=== PATIENT | male | born 1985 | race Two or more races ===

== ENCOUNTER 2017-10-14 12:03 | Emergency (ER) | payer SELFPAY ==
--- NOTE | 2017-10-14 13:00 | EDM.PDOC ---
<Monique Galicia - Last Filed: 10/14/17 12:54> ED HPI GENERAL MEDICAL PROBLEM - General Chief Complaint: Abdominal Pain Stated Complaint: UPPER ABDOMINAL PAIN Time Seen by Provider: 10/14/17 12:42 - History of Present Illness INITIAL COMMENTS - FREE TEXT/NARRATIVE: Patient is a 32 year old male here today for abdominal pain. He drank about 10 beers last night and woke up this morning with LUQ abdominal pain. The pain comes and goes and varies between a 3-8/10 intensity without radiation. He has associated nausea and vomiting and is unable to keep food or water down since last night. He denies fever, chills, diarrhea, or hematemesis. He has not taken anything for pain. He drinks about a 12-pack per week and has a history of pancreatitis, with his last attack occurring about a year ago. Epigastric Pain Score (Numeric/FACES): 4 - Related Data Allergies Allergy/AdvReac Type Severity Reaction Status Date / Time No Known Allergies Allergy Verified 10/14/17 12:24 Home Meds: Home Meds . [No Known Home Meds] 10/14/17 [History] Social & Family History - Tobacco Use Smoking Status *Q: Current Every Day Smoker Years of Tobacco use: 10 Packs/Tins Daily: 0.4 Used Tobacco, but Quit: No Second Hand Smoke Exposure: No - Caffeine Use Caffeine Use: Reports: None - Alcohol Use Date of Last Drink: 10/13/17 - Recreational Drug Use Recreational Drug Use: No ED ROS GENERAL - Review of Systems Constitutional: Reports: Decreased Appetite. Denies: Fever, Chills HEENT: Reports: No Symptoms Respiratory: Reports: No Symptoms Cardiovascular: Reports: No Symptoms Endocrine: Reports: No Symptoms GI/Abdominal: Reports: Abdominal Pain, Decreased Appetite, Nausea, Vomiting. Denies: Bloody Stool, Constipation, Diarrhea : Reports: No Symptoms Musculoskeletal: Reports: No Symptoms Skin: Reports: No Symptoms Neurological: Reports: No Symptoms Psychiatric: Reports: No Symptoms Hematologic/Lymphatic: Reports: No Symptoms Immunologic: Reports: No Symptoms ED EXAM, GI/ABD - Physical Exam Exam Limited By: No Limitations General Appearance: Alert, Mild Distress Throat/Mouth: Normal Inspection Respiratory/Chest: No Respiratory Distress, Lungs Clear, Normal Breath Sounds Cardiovascular: Normal Peripheral Pulses GI/Abdominal Exam: Normal Bowel Sounds, Soft, Guarding, Tender Neurological: Alert, Oriented Course - Vital Signs Last Recorded V/S: Last Vital Signs Temp 37.1 C 10/14/17 12:25 Pulse 70 10/14/17 12:25 Resp 18 10/14/17 12:25 BP 149/107 H 10/14/17 12:25 Pulse Ox 98 10/14/17 12:25 - Orders/Labs/Meds Orders: Active Orders 24 hr Category Date Time Status Peripheral IV Care [RC] . DIRECTED Care 10/14/17 13:19 Active Peripheral IV Insertion Adult [OM.PC] Routine Oth 10/14/17 13:18 Ordered Labs: Laboratory Tests 10/14/17 10/14/17 Range/Units 13:30 13:30 WBC 8.07 (4.23-9.07) K/mm3 RBC 5.09 (4.63-6.08) M/mm3 Hgb 15.5 (13.7-17.5) gm/L Hct 44.9 (40.1-51.0) % MCV 88.2 (79.0-92.2) fl MCH 30.5 (25.7-32.2) pg MCHC 34.5 (32.2-35.5) g/dl RDW Std Deviation 45.1 H (35.1-43.9) fL Plt Count 251 (163-337) K/mm3 MPV 11.1 (9.4-12.3) fl Neutrophils % (Manual) 78 H (40-60) % Band Neutrophils % 1 (0-10) % Lymphocytes % (Manual) 20 (20-40) % Atypical Lymphs % 0 % Monocytes % (Manual) 0 L (2-10) % Eosinophils % (Manual) 0 L (0.8-7.0) % Basophils % (Manual) 1 (0.2-1.2) Platelet Estimate Adequate RBC Morph Comment Normal Sodium 138 (136-145) mEq/L Potassium 4.4 (3.5-5.1) mEq/L Chloride 99 (98-107) mEq/L Carbon Dioxide 27 (21-32) mEq/L Anion Gap 16.4 H (5-15) BUN 18 (7-18) mg/dL Creatinine 0.8 (0.7-1.3) mg/dL Est Cr Clr Drug Dosing 122.79 mL/min Estimated GFR (MDRD) > 60 (>60) mL/min BUN/Creatinine Ratio 22.5 H (14-18) Glucose 98 (74-106) mg/dL Calcium 9.5 (8.5-10.1) mg/dL Total Bilirubin 0.4 (0.2-1.0) mg/dL AST 32 (15-37) U/L ALT 50 (16-63) U/L Alkaline Phosphatase 66 (46-116) U/L C-Reactive Protein < 0.2 (<1.0) mg/dL Total Protein 8.3 H (6.4-8.2) g/dl Albumin 4.5 (3.4-5.0) g/dl Globulin 3.8 gm/dL Albumin/Globulin Ratio 1.2 (1-2) Lipase 111 (73-393) U/L Ethyl Alcohol 0.00 (0.00) gm% Meds: Medications Discontinued Medications Generic Name Dose Route Start Last Admin Trade Name Freq PRN Reason Stop Dose Admin Al Hydroxide/Mg Hydroxide 30 0 ml 10/14/17 13:18 10/14/17 13:33 ml/ Lidocaine HCl 15 ml PO 10/14/17 13:19 45 ml ONETIME ONE Administration Famotidine 20 mg 10/14/17 13:18 10/14/17 13:32 Pepcid IVPUSH 10/14/17 13:19 20 mg ONETIME ONE Administration Sodium Chloride 1,000 mls @ 999 mls/hr 10/14/17 13:18 10/14/17 13:30 Normal Saline IV 10/14/17 14:18 999 mls/hr ONETIME ONE Administration Ondansetron HCl 4 mg 10/14/17 13:18 10/14/17 13:31 Zofran IVPUSH 10/14/17 13:19 4 mg ONETIME ONE Administration Sodium Chloride 10 ml 10/14/17 13:18 10/14/17 13:33 Saline Flush FLUSH 10 ml ASDIRECTED PRN Administration Keep Vein Open Departure - Departure Disposition: Home, Self-Care 01 Clinical Impression: Gastritis - Discharge Information Instructions: Gastritis, Adult, [id number] Referrals: PCP,None [Primary Care Provider] - Forms: ED Department Discharge Additional Instructions: We recommend that you stop drinking alcohol. You have a happier and healthier life if you stop drinking alcohol. Recommend starting [id number] medication such as omeprazole or Nexium. These are proton pump inhibitors and will help reduce acid in your stomach. Follow-up with family medicine if her symptoms persist. Recommend Dr. Bonilla or Dr. Valdez at the [facility]. Call [phone] to schedule with on of these providers Please return to the ER if your symptoms change or worsen. - My Orders Last 24 Hours: My Active Orders 10/14/17 13:18 Peripheral IV Insertion Adult [OM.PC] Routine 10/14/17 13:19 Peripheral IV Care [RC] . DIRECTED - Assessment/Plan Last 24 Hours: My Active Orders 10/14/17 13:18 Peripheral IV Insertion Adult [OM.PC] Routine 10/14/17 13:19 Peripheral IV Care [RC] . DIRECTED <Radha Faye - Last Filed: 10/15/17 14:04> ED HPI GENERAL MEDICAL PROBLEM - General Source of Information: Reports: Patient History Limitations: Reports: No Limitations - History of Present Illness INITIAL COMMENTS - FREE TEXT/NARRATIVE: Patient was initially seen by DREA Jones. I've seen the patient and agree with her history of present illness. Additionally to me the patient reports that he drinks maybe 2 days a week. States he does not normally drink this heavily. Reports the pain as episodic. States that its worse of being 8 out of 10 is currently 3 out of 10. Reports pins and the epigastric area. He states his last severe episode of pain was about 30 minutes ago. ED ROS GENERAL - Review of Systems Review Of Systems: See Below ED EXAM, GI/ABD - Physical Exam Exam: See Below Cardiovascular: Normal Peripheral Pulses, Regular Rate, Rhythm, No Murmur GI/Abdominal Exam: Tender (epigastric) Course - Re-Assessments/Exams Free Text/Narrative Re-Assessment/Exam: 10/14/17 14:42 Reviewed the labs with the patient. He seems like he is improved. I Feel this is Alcohol gastritis. Follow-up with family medicine as needed. Discharge instructions as documented. The patient was initially seen by DREA Jones I have seen the patient and evaluated him. I agree with her history of present illness, physical exam and review of systems as documented by Monique. Departure - Departure Time of Disposition: 14:43 Condition: Fair
[2017-10-14] MEDS ORDERED: Sodium Chloride 0.9% 1,000 ML IV ONE (13:18)
[2017-10-14] MEDS ORDERED: Ondansetron 4 MG/2 ML SDV IVPUSH ONE (13:18)
[2017-10-14] MEDS ORDERED: Alum Hydrox/Mag Hydrox/Simeth 30 ML, Lidocaine 2% 15 ML PO ONE ×2 (13:18)
[2017-10-14] MEDS ORDERED: Sodium Chloride 0.9% 10 ML Syringe FLUSH PRN (13:18)
[2017-10-14] MEDS ORDERED: Famotidine 20 MG/2 ML SDV IVPUSH ONE (13:18)
== END 2017-10-14 14:54 | disposition home or self-care (01) ==
LOC: JD.ED 12:03
DX: K29.70 Gastritis, unspecified, without bleeding (principal); F17.210 Nicotine dependence, cigarettes, uncomplicated
CPT/HCPCS: 36415; 80053; 83690; 85025; 86140; 96361; 96374; 96375; 99284; A9270; G0480; J2405; J7040; J7050